=== PATIENT | female | born 1945 | race Caucasian/White ===

== ENCOUNTER → 2016-11-25 | Outpatient (CLI) | payer MEDICARE ==
[~2016-11-25] MED LIST: AMLODIPINE BESYL5 MG PO; ASPIRIN81 M1 PO; CALCIUM PO; CENTRUM SILVER PO; CINNAMON; CIPRO PO; FLAGYL PO; GINGER PO; GLUCOSAMINE & C1 CAP PO; KLONOPIN PO; KLONOPIN0.5 MG PO; LEVOTHROID25 MCG PO; LISINOPRIL20 MG PO; LORTAB 5/500 TA1 TA2 PO; MUCINEX; MULTI VITAMIN1 EACH PO; NEXIUM PO; NORVASC PO; OMEGA 3 FISH OI1 CAP PO; OMEPRAZOLE20 M2 PO; PAXIL10 MG PO; PHENERGAN25 MG PO; PRAVASTATIN SOD40 MG PO; PROTONIX PO; SIMVASTATIN40 MG PO; TUMERIC; VITAMIN D5000 UNIT PO; VOLTAREN75 MG PO; ZYRTEC10 M2 PO
--- NOTE | ~2016-11-25 | US49 ---
[facility] A Service of [facility] & [facility] RADIOLOGY TEXT RESULTS PATIENT: RM BAH LOCATION: [facility] : 49 UNIT #: [id number] AGE: [address]: Nargis English APRN SEX: F ORDER DR: [id number] [facility] [address]. [place], [place] [address] [id number] O MR#: [id number] Acc #: [id number] NAME: RM BAH : 1945 SEX: F STUDY DATE/TIME: 11/25/2016 10:17 UNIT: [facility] ROOM: STUDY DESCRIPTION: US Extremity Non Vasc Complete Attending Physician: Nargis English A.P.R.N. Referring Physician: Nargis English A.P.R.N. Ordering Physician: Nargis English A.P.R.N. Primary Care Physician: Nargis English A.P.R.N. MEDICAL IMAGING REPORT This report is preliminary unless electronic signature is present EXAM Right extremity venous duplex Doppler INDICATION Palpable mass in the antecubital fossa. FINDINGS Gomez-scale and color Doppler ultrasound of the right upper extremity was performed. There is a superficial venous thrombus within a superficial vein of the antecubital fossa. There is no extension beyond the antecubital fossa. IMPRESSION 1. Superficial thrombus within a peripheral vein at the antecubital fossa. No extension further into the arm. Dictated by... Wallace Bolanos M.D. THIS IS AN ELECTRONICALLY VERIFIED REPORT Wallace Bolanos M.D. at 11/26/2016 8:14 AM MAURA/nadeen TD: 11/25/2016 16:16 JOB #: [id number] MEDICAL IMAGING REPORT Page 1 of 1 COPY
== END | disposition home or self-care (01) ==
LOC: CWCC 10:01
DX: M79.601 Pain in right arm (principal); M79.89 Other specified soft tissue disorders; I82.611 Acute embolism and thrombosis of superficial veins of right upper extremity
CPT/HCPCS: 76881